=== PATIENT | female | born 1970 | race African-American/Black ===

== ENCOUNTER → 2017-07-28 | Day surgery (SDC) | payer OTHER ==
[~2017-07-28] MED LIST: KETOROLAC TROMETHAMINE 30 MG/ML (IVP) VIAL IV PUSH ONE; LACTATED RINGER'S 1000 ML INJ 1,000 ML ONE; MIDAZOLAM HCL 2 MG/2 ML VIAL ONE; ONDANSETRON HCL 4 MG/2 ML VIAL IV PUSH ONE; PROPOFOL 200 MG/20 ML AMP IV ONE; ceFAZolin 2 GM PREMIX 50 ML ONE
--- NOTE | 2017-07-28 11:45 | MP ---
cc: NIRALI HAYNES CARLOS M.D. DATE OF SURGERY 07/28/2017 PREOPERATIVE DIAGNOSIS Patient with episodic menorrhagia, suspect endometrial polyp or myoma. PROCEDURE Exam under anesthesia, diagnostic hysteroscopy, fractional D&C and use of MyoSure resection of polyp. POSTOPERATIVE DIAGNOSIS Patient with episodic menorrhagia, very small polyp identified. ANESTHESIA General with LMA ESTIMATED BLOOD LOSS Less than 50 cc DRAINS None FLUIDS No discrepancy in installation fluid. OPERATIVE FINDINGS The patient had a retroverted uterus. Cavity was symmetrical. There was a small lesion in the posterior endometrial surface suggesting transmural myoma. There was no large anterior intraluminal lesions suspected by the ultrasound. The remainder of the operative findings were benign. SURGICAL SPECIMENS Included endocervical and endometrial sampling. INDICATIONS FOR PROCEDURE Patient with recurrent heavy menstrual bleeding. Ultrasound obtained as part of her evaluation revealed an intraluminal lesions either a myoma or fibroid or polyp. RECOMMENDATIONS Proceed with diagnostic hysteroscopy and possible resection. The patient received Ancef 2 grams prophylactically. PROCEDURE DESCRIPTION The patient was taken to the operating room in stable condition and underwent general anesthesia with LMA placement. She was carefully positioned in the dorsolithotomy position using candy-cane stirrups. She had sequential's placed on all extremities for VTE prophylaxis. After she was prepped and draped, a time-out was conducted, agreed by all present in the room. Exam revealed the findings stated above. A simple weighted speculum was placed posteriorly. The cervix was secured anteriorly with a single-tooth tenaculum. The uterine sound was placed gently in a slightly retroverted fashion measuring about 8 cm. Endocervical curettings were previously obtained and sent and labeled endocervical curettings. Dilation of the cervix was accomplished and then the 5 mm hysteroscope was inserted using normal saline. The cavity findings were described above. The posterior lesion was resected easily with the MyoSure without complication. The remainder endometrial cavity was curetted and tissue sent as endometrial an biopsy biopsy. At the end of the case, there was no active bleeding. The patient was stable. The tenaculum site had a small laceration and it was sutured with a simple 2-0 Vicryl suture without complication. At the completion of the case, final count was correct. The patient was stable. She was taken to the recovery room on room air. MD VALERIE Mccarthy/DJL /8:39 AM /11:30 AM
== END | disposition home or self-care (01) ==
LOC: ESDC 07:05
PROVIDERS: ATTEND Obstetrics & Gynecology
DX: N92.0 Excessive and frequent menstruation with regular cycle (principal); N84.0 Polyp of corpus uteri
CPT/HCPCS: 00952; 58558; 88305; J0690; J1885; J2250; J2405; J3010; J7120